=== PATIENT | male | born 1955 | race Asian ===

== ENCOUNTER → 2017-05-28 | Outpatient (CLI) | payer OTHER ==
[2017-05-28 11:29] LABS: INR 3.1 (0.8-3.0); PROTHROMBIN TIME 36.3 SECONDS (9.7-12.8)
== END ==
LOC: COL.LAB 10:04
DX: M47.814 Spondylosis without myelopathy or radiculopathy, thoracic region (principal); J44.9 Chronic obstructive pulmonary disease, unspecified; I48.91 Unspecified atrial fibrillation

== ENCOUNTER → 2017-08-19 | Outpatient (CLI) | payer OTHER ==
[2017-08-19 10:41] LABS: HEMATOCRIT 45.1 % (42.0-52.0); HEMOGLOBIN 15.6 g/dl (13.5-18.0); MEAN CELL VOLUME 98 fl (80.0-100.0); MEAN CORPUSCULAR HEMOGLOBIN 34 pg (27.0-31.0); MEAN CORPUSCULAR HGB CONC 35 g/dl (33.0-37.0); MEAN PLATELET VOLUME 9.7 fl (7.4-10.4); PLATELET COUNT 169 K/mm3 (130-400); REDCELL DISTRIBUTION WIDTH-CV 12.4 % (11.5-14.5)
[2017-08-19 10:52] LABS: ALBUMIN 3.9 gm/dL (3.5-5.0); BILIRUBIN,TOTAL 0.7 mg/dL (0.0-1.0); CALCIUM 9.2 mg/dL (8.4-10.2); CHOLESTEROL RISK RATIO 4.3; CREATININE, serum 0.91 mg/dL (0.66-1.25); POTASSIUM 4.1 mmol/L (3.4-5.0); TOTAL PROTEIN 6.9 gm/dL (6.4-8.2)
[2017-08-19 10:56] LABS: INR 2.1 (0.8-3.0); PROTHROMBIN TIME 24.9 SECONDS (9.7-12.8)
== END ==
LOC: COL.LAB 10:01
DX: E11.9 Type 2 diabetes mellitus without complications (principal); I48.91 Unspecified atrial fibrillation; I10 Essential (primary) hypertension